=== PATIENT | female | born 1960 | race Caucasian/White ===

== ENCOUNTER 2021-11-19 15:51 | Emergency (ER) | payer MEDICARE ==
[~2021-11-19 15:51] MED LIST: ASPIRIN EC81 MG PO; CLEOCIN300 MG PO; FLONASE ALLER15.8 ML; LOPRESSOR25 MG PO; NORCO 5-325 TA1 EACH PO; PACERONE200 MG PO; SYNTHROID200 MCG PO; VITAMIN B-12; VITAMIN D5000 UNIT PO
[2021-11-19 19:08] LABS: BASOPHIL 0.7 % (0-2); HCT 44.4 % (37.0-47.0); HGB 15.3 g/dl (12.5-16.0); LYMPHOCYTE 30.7 % (15-48); MCH 32.1 pg (25.0-31.0); MCHC 34.5 g/dL (32.0-36.0); MCV 93.3 fL (78.0-100.0); MONOCYTE 5.9 % (0-12); MPV 9.9 fL (6.0-9.5); NEUTROPHIL 61.4 % (41-80); NRBC 0; PLT 204 K/uL (150-400); RBC 4.76 M/uL (4.20-5.40); RDW 12.4 % (11.5-14.0); WBC 9.4 K/uL (4.0-10.5)
[2021-11-19 19:26] LABS: ALBUMIN 4.4 g/dL (3.4-5.0); BILIRUBIN - TOTAL 0.3 mg/dL (0.2-1.0); BUN/CREAT RATIO (CALC) 18.8 RATIO; CREATININE 0.8 mg/dL (0.51-0.95); POTASSIUM 3.8 mmol/L (3.5-5.1); TOTAL PROTEIN 7.4 g/dL (6.4-8.2)
[2021-11-19] MEDS ORDERED: PREDNISONE 20MG20 MG PO (20:08)
[2021-11-19] MEDS ORDERED: BACTRIM DS TAB1 EACH PO (20:08)
== END 2021-11-19 20:13 | disposition home or self-care (01) ==
LOC: FER 15:51
PROVIDERS: Nurse Practitioner Family
DX: A28.1 Cat-scratch disease (principal); M79.604 Pain in right leg; Z88.1 Allergy status to other antibiotic agents
CPT/HCPCS: 36415; 80053; 85025; 87040; 99283; J7512